=== PATIENT | male | born 1975 | race Caucasian/White ===

== ENCOUNTER 2025-04-05 12:52 | Outpatient (AMB) | payer MEDICAID, SELFPAY ==
--- NOTE | 2025-04-05 12:58 | MHC.OFFVIS ---
Vital Signs 04/05/25 13:02 Height 5 ft 9 in Weight 216 lb 6 oz BMI 31.9 BP 112/80 Blood Pressure Location Rt brachial Position Sitting Pulse 80 Pulse Source Pulse Oximeter Pulse Oximetry (%) 95 Oxygen Delivery Method Room Air Intake Visit Reasons: ENP-Tremors Intake Note: Tremor Staff Readiness Officer Required: No Accompanied by: fiance Allergies No Known Allergies Allergy (Verified 04/05/25 13:03) Medication List - Last Reconciled 04/05/25 by Soledad Tran MD albuterol sulfate 90 mcg/actuation (Ventolin HFA) 2 puffs inhalation Q6H PRN buprenorphine-naloxone 8-2 mg (Suboxone) 2 film buccal DAILY bupropion HCl XL 300 mg PO DAILY citalopram 40 mg PO DAILY hydroxyzine HCl 10 - 20 mg PO TID PRN loratadine 10 mg PO DAILY tiotropium bromide 1.25 mcg/actuation (Spiriva Respimat) 2 puffs inhalation DAILY trazodone 50 mg PO BEDTIME HPI Comments Details: 49y/o Right handed male comes for evaluation of tremors. He reports jazmin hand tremors for past 2 years . His tremors are worse in his right more than left. The tremors are both at rest and action . He also reports pain in his hands that started 2 years ago he also has jerky movements( big twitch) in sleep. He also has chronic neck pain and head He also has gait issues due to pain in his feet He has chronic back pain He denies MVAs , no head injuries . His father used to have tremors. He was a heavy alcoholic and quit 4 years ago. [facility] Medical History (Updated 04/05/25 @ 13:28 by Soledad Tran MD) Hypersomnia Nocturnal leg movements Numbness and tingling in both hands Cervicalgia Multiple joint pain Bilateral carpal tunnel syndrome Seronegative rheumatoid arthritis Back stiffness Tremor Physical Exam Vital Signs: Last Vital Signs Pulse 80 04/05/25 13:02 BP 112/80 04/05/25 13:02 Pulse Ox 95 04/05/25 13:02 Oxygen Delivery Method Room Air 04/05/25 13:02 BMI result Body Mass Index 31.9 Const General: cooperative and no acute distress Nutritional Appearance: overweight Orientation/consciousness: patient oriented x3 Eyes Pupils: Equal, round and reactive pupils present Neuro Other: mallampatti grade 4 jazmin hand tremors- postural R>L Patient reports pain in multiple joints Neck stiffness General: patient oriented x3, tone normal, moves all extremities and no focal motor deficits Cranial nerves: Yes Facial sensation intact/muscles of mastication intact, Yes Equal, round and reactive pupils present, Yes Bilaterally intact EOM present, Yes Nystagmus not present, Yes Normal facial strength present, Yes Midline tongue present and Yes Ability to bilaterally elevate shoulders present Cognition (Neuro): normal cognition Gait exam (Neuro): Antalgic gait present Motor exam (neuro): 5/5 motor strength present throughout and Normal motor muscle tone present throughout Deep tendon reflexes (DTR's): Right triceps reflex intensity grade: 1+, Left triceps reflex intensity grade: 1+, Rt Biceps (C5, C6): 1+, Left biceps reflex intensity grade: 1+, Right brachioradialis reflex intensity grade: 1+, Left brachioradialis reflex intensity grade: 1+, Right patellar reflex intensity grade: 1+ and Left patellar reflex intensity grade: 1+ Coordination: [id number] test normal Assessment & Plan Assessment & Plan (1) Tremor: Comment: exaggerated physiological Code(s): R25.1 - Tremor, unspecified Category: Medical (2) Cervicalgia: Code(s): M54.2 - Cervicalgia Category: Medical (3) Numbness and tingling in both hands: Code(s): R20.0 - Anesthesia of skin; R20.2 - Paresthesia of skin Category: Medical (4) Nocturnal leg movements: Code(s): R25.8 - Other abnormal involuntary movements Category: Medical (5) Hypersomnia: Code(s): G47.10 - Hypersomnia, unspecified Category: Medical Plan EMG NCS - UE X ray , CT c spine and L spine from [facility] for review Sleep study to r/o sleep apnea No evidence of parkinsons on todays exam Increase gabapentin 400mg qid Orders: Orders NE electromyogram (EMG) Today R20.0 - Anesthesia of skin, R20.2 - Paresthesia of skin NE nerve conduction velocity Today R20.0 - Anesthesia of skin, R20.2 - Paresthesia of skin RT home sleep study Today G47.10 - Hypersomnia, unspecified, R25.8 - Other abnormal involuntary movements Medications: New gabapentin 400 mg PO QID 120 caps 6RF Coding Level of Care Code New Pt Level 4 (93277) Complex EM visit Add On G2211 Diagnoses Tremor R25.1 Cervicalgia M54.2 Numbness and tingling in both hands R20.0; R20.2 Nocturnal leg movements R25.8 Hypersomnia G47.10
[2025-04-05 13:02] VITALS: BP 112/80; PULSE 80; O2SAT 95; BMI 31.9
== END 2025-04-05 15:21 | disposition home or self-care (01) ==
LOC: HO.HSMS 12:52
PROVIDERS: PCP Family Medicine; Visit Provider Psychiatry & Neurology Neurology
DX: R25.1 Tremor, unspecified (principal); M54.2 Cervicalgia; R20.0 Anesthesia of skin; R20.2 Paresthesia of skin; R25.8 Other abnormal involuntary movements; G47.10 Hypersomnia, unspecified
CPT/HCPCS: 99204

== ENCOUNTER → 2025-04-05 12:52 | Outpatient (BNVA) | payer MEDICAID, SELFPAY | PROVIDERS: PCP Family Medicine; Visit Provider Psychiatry & Neurology Neurology | DX: R25.1 Tremor, unspecified (principal); M54.2 Cervicalgia; R20.0 Anesthesia of skin; R20.2 Paresthesia of skin; R25.8 Other abnormal involuntary movements; G47.10 Hypersomnia, unspecified | CPT/HCPCS: 99202 ==